=== PATIENT | female | born 1975 | race Two or more races ===

== ENCOUNTER 2016-08-11 00:47 | Emergency (ER) | payer SELFPAY ==
--- NOTE | 2016-08-11 06:04 | ER ---
ADMIT: 08/11/2016 RM/LOC: ER [facility] MR#: [id number] [id number] [place], [place] [id number] [facility] [address] [place] [address] [facility] Emergency Room Report SEX: F AGE: 40 : 1975 DATE: 08/11/2016 HISTORY OF PRESENT ILLNESS: The patient is a 40-year-old female with no significant past medical history, came to the ER with chief complaint of epigastric pain which radiates to the left lower quadrant for the last 2 days. The patient also complains of feeling nauseous. The patient had normal bowel movement today. The patient also tolerated p.o. before coming to the ER. PHYSICAL EXAMINATION: GENERAL: The patient was in moderate distress, sitting in bed. VITAL SIGNS: Stable. The patient is afebrile. HEAD and NECK: Noncontributory. CHEST: Clear bilaterally. HEART: Sounds are normal without any extra sounds or murmurs. ABDOMEN: Has moderate tenderness in left lower quadrant, without any rebound or guarding. PELVIC: Positive for left adnexal tenderness and negative for cervical motion tenderness. The patient had yellow discharge from the cervix and cervix was mildly erythematous. Pain was controlled, nausea was controlled with medications. Vaginal panel was positive for Trichomonas and Yessica. The patient received Flagyl 2 g p.o., was discharged to home on clotrimazole cream and was also screened for Chlamydia and Gonorrhea and was advised to refrain from sexual contact with the partner until the partner also is cleared by the primary doctor or public health. The patient is stable, pain has resolved and the patient is stable for discharge to home. Mario Contreras MD/ iggy JOB #: [id number] CC: Mario Contreras MD, Attending Physician Eleanor Meza APRN-JUAN RAMON, Family Physician
== END 2016-08-11 05:11 | disposition home or self-care (01) ==
LOC: ER 00:47
DX: A59.01 Trichomonal vulvovaginitis (principal); B37.3 Candidiasis of vulva and vagina; R10.32 Left lower quadrant pain; E11.9 Type 2 diabetes mellitus without complications